=== PATIENT | female | born 1970 | race Caucasian/White ===

== ENCOUNTER → 2017-02-04 | Outpatient (CLI) | payer OTHER ==
[~2017-02-04] MED LIST: ACTOS PO; AMARYL; ASPIRIN81 M1 PO; ASPIRIN81 M2 PO; BUSPAR PO; BYETTA10 MCG/0.0 INJ; CLARITIN10 M3; CLARITIN10 MG PO; CRESTOR PO; FLONASE 0.05% N16 G1; FLONASE16 GM; GLUCOPHAGE XR500 MG; HUMALOG100 UNIT/1; LANTUS SOL100 UNIT/1; LASIX PO; LISINOPRIL PO; METFORMIN HCL500 M2 PO; PROGESTERONE200 MG PO; PROTONIX PO; ZOLOFT PO; ZYRTEC10 M2 PO
--- NOTE | ~2017-02-04 | CR97 ---
[facility] A Service of [facility] & [facility] RADIOLOGY TEXT RESULTS PATIENT: TANGELA RODRIGUEZ LOCATION: [facility] : [birth year] UNIT #: [id number] AGE: [address]: Leroy Cooper III, MD SEX: F ORDER DR: [id number] [facility] [address]. [place], [place] [address] [id number] O MR#: [id number] Acc #: [id number] NAME: TANGELA RODRIGUEZ : 1970 SEX: F STUDY DATE/TIME: 02/04/2017 11:28 UNIT: [facility] ROOM: STUDY DESCRIPTION: CR Esophagram Attending Physician: Leroy Cooper III, M.D. Referring Physician: Leroy Cooper III, M.D. Ordering Physician: Leroy Cooper III, M.D. Primary Care Physician: Jared Garza M.D. MEDICAL IMAGING REPORT This report is preliminary unless electronic signature is present EXAM Barium esophagram HISTORY New onset reflux, previous Lap-Band patient. Please evaluate for slippage. PROCEDURE Barium was administered orally. Swallowing was normal. In the upright position there is free flow through the Lap-Band. The patient was placed in the recumbent position and there is clearly slippage of the band distally around the cardia of the stomach. There is no evidence, however of obstruction. CONCLUSION Lap-Band appears to have slipped distally and now lies around the gastric cardia. Dictated by... Dale Ny M.D. THIS IS AN ELECTRONICALLY VERIFIED REPORT Dale Ny M.D. at 02/07/2017 5:11 PM IRMA/sole TD: 02/04/2017 17:41 JOB #: [id number] MEDICAL IMAGING REPORT Page 1 of 1 COPY
== END | disposition home or self-care (01) ==
LOC: CRAD 10:56
DX: R13.10 Dysphagia, unspecified (principal); Z98.84 Bariatric surgery status
CPT/HCPCS: 74220

== ENCOUNTER → 2017-03-02 | Outpatient (CLI) | payer OTHER ==
--- NOTE | ~2017-03-02 | EKG ---
PATIENT: TANGELA RODRIGUEZ UNIT #: [id number] Ventricular Rate: 59 BPM Atrial Rate: 59 BPM P-R Interval: 148 ms QRS Duration: 80 ms Q-T Interval: 414 ms QTC Calculation(Bezet): 409 ms P Sodus: 37 degrees Calculated R Sodus: 30 degrees Calculated T Sodus: 24 degrees Diagnosis Line: Sinus bradycardia Diagnosis Line: Otherwise normal ECG Diagnosis Line: No previous ECGs available Diagnosis Line: Confirmed by YOLA DUNN MD ([id number]) on Diagnosis Line: 03/03/2017 10:39:14 AM INTERPRETING MD: MONA MCCORMACK
[2017-03-02 16:17] LABS: ALBUMIN SERUM 3.8 g/dL (3.5-5.0); BILIRUBIN,TOTAL 0.8 mg/dL (0.2-2.0); BUN/CREATININE RATIO 16.66; CREATININE SERUM 0.6 mg/dL (0.6-1.4); GLOM FILT RATE Estimated 109.3 mL/min (>60); POTASSIUM 4.1 mmol/L (3.5-5.1); PROTEIN TOTAL SERUM 6.9 g/dL (6.0-8.3)
== END | disposition home or self-care (01) ==
LOC: CAMB 14:43
PROVIDERS: Surgery
DX: Z01.818 Encounter for other preprocedural examination (principal)
CPT/HCPCS: 36415; 80053; 93005

== ENCOUNTER → 2017-03-09 | Day surgery (SDC) | payer OTHER ==
--- NOTE | ~2017-03-09 | OR ---
Unit #: [id number] #: [id number] Patient: TANGELA RODRIGUEZ [id number] [address] [place], [place] [address] [id number] O MR#: [id number] NAME: TANGELA RODRIGUEZ ROOM: Date of Procedure: 03/09/2017 Admission Date: 03/09/2017 Surgeon: Leroy Cooper III, M.D. : 1970 Attending Physician: Leroy Cooper III, M.D. Primary Care Physician: Jared Garza M.D. OPERATIVE REPORT PREOPERATIVE DIAGNOSIS Lap band intolerance. POSTOPERATIVE DIAGNOSES Lap band intolerance with dysphagia and reflux. PROCEDURE PERFORMED Laparoscopic removal of adjustable gastric band and port. PRINT PRODUCTION MANAGER Bam Osorio M.D. SPECIMENS None. COMPLICATIONS None apparent. ESTIMATED BLOOD LOSS Minimal. ANESTHESIA General endotracheal tube anesthesia. INDICATIONS FOR PROCEDURE This is a 47-year-old lady, who has been intolerant to her lap band. She is here today for lap band removal. DESCRIPTION OF PROCEDURE After consent was obtained, the patient was brought to the operating room and placed in the supine position. General anesthetic was administered. Her abdomen was prepped and draped in standard surgical fashion. I made a 1 inch incision where her previous port incision was made. I dissected down and identified her lap band port. It was removed from the surrounding tissue by breaking down the lateral stay sutures and removing them. Once I had the port mobile, I trimmed the excess port tubing and entered the peritoneal cavity at that location with a Visiport. I then obtained CO2 pneumoperitoneum. I placed a 10-mm port in the left upper quadrant and a 5-mm port in the left lateral subcostal region. I was able to easily follow tubing up to the top portion of the stomach. There was no abnormality seen. She had some typical adhesions around the buckle of the band which were easily taken down with the hook cautery. Once the Unit #: [id number] #: [id number] Patient: TANGELA RODRIGUEZ band was mobilized, I unbuckled the band and then divided near the buckle with Endo Verena. I then removed all components of the band from the abdominal cavity. There was no evidence of erosion or staining on the band itself. Hemostasis was excellent. I released the pneumoperitoneum. All ports were removed. Needle, sponge, and instrument counts were correct x2. I then injected all the port sites with 0.25% plain Marcaine. I reapproximated the skin edges with interrupted 4-0 Vicryl subcuticular suture. Steri-Strips were then applied. The patient tolerated the procedure without any problems and returned to the recovery room in stable condition. Dictated by... Leroy Cooper III, M.D. VCL/nany TD: 03/11/2017 04:42 JOB #: [id number] OPERATIVE REPORT Page 1 of 1 X Leroy Cooper III, MD PROCEDURE OPERATIVE NOTE
== END | disposition home or self-care (01) ==
LOC: CSUR 08:10
DX: K95.09 Other complications of gastric band procedure (principal); K21.9 Gastro-esophageal reflux disease without esophagitis; M19.90 Unspecified osteoarthritis, unspecified site; I10 Essential (primary) hypertension; E11.9 Type 2 diabetes mellitus without complications; E66.01 Morbid (severe) obesity due to excess calories; Z68.43 Body mass index [BMI] 50.0-59.9, adult; Z79.4 Long term (current) use of insulin; Z88.8 Allergy status to other drugs, medicaments and biological substances; Z79.82 Long term (current) use of aspirin; Z79.899 Other long term (current) drug therapy; Z98.890 Other specified postprocedural states
CPT/HCPCS: 82947; J0330; J2250; J2405; J2710; J3010

== ENCOUNTER → 2017-04-29 | Day surgery (SDC) | payer OTHER ==
--- NOTE | ~2017-04-29 | OR ---
Unit #: [id number] #: [id number] Patient: TANGELA RODRIGUEZ [id number] [address] [place], [place] [address] [id number] O MR#: [id number] NAME: TANGELA RODRIGUEZ ROOM: Date of Procedure: 04/29/2017 Admission Date: 04/29/2017 Surgeon: Leroy Cooper III, M.D. : 1970 Attending Physician: Leroy Cooper III, M.D. Primary Care Physician: Jared Garza M.D. OPERATIVE REPORT PREOPERATIVE DIAGNOSIS Dysphagia. POSTOPERATIVE DIAGNOSES Dysphagia with normal upper endoscopy. PROCEDURE PERFORMED Esophagogastroduodenoscopy with MAMADOU testing. COMPLICATIONS None apparent. ANESTHESIA MAC. SPECIMENS Antrum was sent for MAMADOU testing. INDICATIONS FOR PROCEDURE This is a 47-year-old lady, who has had ongoing dysphagia despite having her lap band removed. She is here today to look for stricture. DESCRIPTION OF PROCEDURE After consent was obtained, the patient was brought to the endoscopy suite and placed in the left lateral decubitus position. We titrated the above sedation and I passed an EGD scope easily into the esophagus under direct visualization. She had normal peristalsis. No evidence of any erosions or esophagitis. There was really no evidence that she had ever even had a lap band placed. The scope passed easily into the stomach. There were no ulcerations or gastritis or masses. The pylorus was patent and the first and second portions of the duodenum appeared normal. I then retroflexed the scope within the cardia and again, there was no evidence of a hiatal hernia. The scope was straightened. I took a biopsy of the antrum for MAMADOU testing. I then examined the distal esophagus again and again, there was nothing I could see that would explain why she is having dysphagia. The scope was straightened and then carefully withdrawn. The patient tolerated the procedure without any problems and returned to the recovery room in stable condition. Dictated by... Leroy Cooper III, M.D. Unit #: [id number] #: [id number] Patient: TANGELA RODRIGUEZ VCL/modl TD: 04/30/2017 05:02 JOB #: [id number] OPERATIVE REPORT Page 1 of 1 X Leroy Cooper III, MD PROCEDURE OPERATIVE NOTE
== END | disposition home or self-care (01) ==
LOC: COPS 11:56
DX: R13.10 Dysphagia, unspecified (principal); K21.9 Gastro-esophageal reflux disease without esophagitis; I10 Essential (primary) hypertension; E11.9 Type 2 diabetes mellitus without complications; E66.01 Morbid (severe) obesity due to excess calories; M19.90 Unspecified osteoarthritis, unspecified site; Z68.43 Body mass index [BMI] 50.0-59.9, adult; Z79.82 Long term (current) use of aspirin; Z79.899 Other long term (current) drug therapy; Z98.84 Bariatric surgery status
CPT/HCPCS: 82947; 84703; 87077